=== PATIENT | male | born 1980 | race Hispanic/Latino ===

== ENCOUNTER 2025-04-21 20:08 | Emergency (ER) | payer OTHER, SELFPAY ==
[2025-04-21] MEDS ORDERED: Boostrix 0.5 ML (Tdap) VIAL (>/=7 yrs of age) ONE (21:03)
[2025-04-21] MEDS ORDERED: Lidocaine 1% PF 5 ML VIAL ONE (21:41)
[2025-04-21] MEDS ORDERED: Azithromycin 250 MG TAB ONE (23:44)
[2025-04-21] MEDS ORDERED: cefTRIAXone (ROCEPHIN) 1 GM VIAL ONE (23:45)
[2025-04-22 05:54] LABS: D-Dimer Test 1.15 mcg/mL (0.27-0.43); INR-International Normal Ratio 1.1; PTT 27.1 sec (22.9-36.1); Prothrombin Time 14.1 sec (12.0-14.7)
[2025-04-22 06:04] LABS: #Basophils 0.1 thou/uL (0.0-0.2); #Eosinophils 0.1 thou/uL (0.0-0.7); #Lymphocytes 1.2 thou/uL (1.20-3.40); #Monocytes 0.8 thou/uL (0.11-0.59); #Neutrophils 13.6 thou/uL (1.40-6.50); %Basophils 0.7 % (0.0-1.0); %Eosinophils 0.9 % (0.0-10.0); %Lymphocytes 7.3 % (21.0-51.0); %Monocytes 5.1 % (0.0-10.0); %Neutrophils 86.0 % (42.0-75.0); Anion Gap 18 mmol/L (10-20); BUN (Urea Nitrogen) 13 mg/dL (8.9-20.6); Bilirubin, Total 0.5 mg/dL (0.3-1.2); Calcium 9.1 mg/dL (7.6-10.4); Carbon Dioxide 23 mmol/L (22-29); Chloride 102 mmol/L (98-107); Glucose 108 mg/dL (70-105); Hematocrit 38.6 % (42.0-52.0); Hemoglobin 12.6 g/dL (14.0-18.0); Mean Corpuscular Hemoglobin 26.8 pg (27.0-31.0); Mean Corpuscular Volume 82.0 fl (78.0-98.0); Platelet Count 554 10x3/uL (130-400); Potassium 3.9 mmol/L (3.5-5.1); Red Blood Cell (RBC) Count 4.71 mill/uL (4.70-6.10); Sodium 139 mmol/L (136-145); White Blood Cell (WBC) Count 15.8 10x3/uL (4.8-10.8)
[2025-04-22 06:05] LABS: ALT (SGPT) 28 U/L (Less than 45); AST (SGOT) 32 U/L (11-34); Albumin 3.6 g/dL (3.1-4.5); Alkaline Phosphatase 68 U/L (40-110); Globulin 4.7 g/dL (2.4-3.5)
[2025-04-22 11:02] LABS: Troponin I Less than 0.010 ng/mL (< 0.028)
[2025-04-22 16:23] LABS: Troponin I Less than 0.010 ng/mL (< 0.028)
== END 2025-04-22 00:51 | disposition home or self-care (01) ==
LOC: MADERS 20:08 → EDBD 20:08 → MADERS 04-22 00:51
DX: R55 Syncope and collapse (principal); S02.5XXA Fracture of tooth (traumatic), initial encounter for closed fracture; S01.511A Laceration without foreign body of lip, initial encounter; S40.012A Contusion of left shoulder, initial encounter; S60.511A Abrasion of right hand, initial encounter; S09.90XA Unspecified injury of head, initial encounter; J18.9 Pneumonia, unspecified organism; I10 Essential (primary) hypertension; W01.10XA Fall on same level from slipping, tripping and stumbling with subsequent striking against unspecified object, initial encounter
CPT/HCPCS: 12011; 70450; 70486; 71045; 71275; 80053; 80307; 84484; 85025; 85379; 85610; 85730; 90471; 90715; 93005; 96365; J0696; J7030